=== PATIENT | male | born 1995 | race Caucasian/White ===

== ENCOUNTER 2019-02-04 00:08 | Emergency (ER) | payer MEDICAID, OTHER ==
[~2019-02-04] VITALS: Ht 160 cm; Wt 66.9 kg
[~2019-02-04 00:08] MED LIST: LORA1TAB PO
[2019-02-04 00:10] VITALS: Ht 160 cm; Wt 66.9 kg
[2019-02-04] MEDS ORDERED: LORAZEPAM 1 MG TAB PO ONE (01:00)
[2019-02-04 01:02] VITALS: BP 128/85; PULSE 94; RESP 18
--- NOTE | 2019-02-04 01:27 | ERD ---
ER Documentation Chief Complaint Chief Complaint PT BIB FAMILY W/ C/O FEELING ANXIOUS TODAY HPI 23-year-old male with history of bipolar disorder presents to the emergency department, brought in by his girlfriend with concerns for anxiety reaction. He states just prior to arrival he was in the shower when he began to feel very anxious. He does report significant stress in his life currently. He is not taking medication for his symptoms at this time. He adamantly denies any homicidal or suicidal ideation. He denies previous suicidal attempts. He denies any auditory hallucinations or visual hallucinations. He states he has a scheduled follow-up with his psychiatrist within the next 1 to 2 days. No other symptoms reported at this time. ROS All systems reviewed and are negative except as per history of present illness. Medications Home Meds Active Scripts Lorazepam* (Lorazepam*) 1 Mg Tablet, 1 MG PO Q8H PRN for ANXIETY, #10 TAB Prov:HEMANT HUYNH PA-C 02/04/19 Allergies Allergies: Coded Allergies: No Known Drug Allergies (Unverified Allergy, Unknown, 03/09/15) PMhx/Soc History of Surgery: Yes (HERNIA REPAIR AT 1Y 6M) Anesthesia Reaction: No Hx Neurological Disorder: No Hx Respiratory Disorders: No Hx Cardiac Disorders: No Hx Psychiatric Problems: No Hx Miscellaneous Medical Probl: No Hx Alcohol Use: No Hx Substance Use: No Hx Tobacco Use: Yes Smoking Status: Current every day smoker FmHx Family History: No diabetes Physical Exam Vitals Vital Signs Date Temp Pulse Resp B/P (MAP) Pulse Ox O2 O2 Flow FiO2 Time Delivery Rate 02/04/19 97.8 94 18 128/85 96 01:02 (99) 02/04/19 98.1 103 22 156/101 99 00:10 (119) Physical Exam Const: No acute distress Head: Atraumatic Eyes: Normal Conjunctiva ENT: Normal External Ears, Nose and Mouth. Neck: Full range of motion. No meningismus. Resp: No respiratory distress. Skin: No petechiae or rashes Back: No midline or flank tenderness Ext: No cyanosis, or edema Neur: Awake and alert Psych: Anxious. Denies homicidal or suicidal ideations. Results 24 hrs Current Medications Medications Dose Sig/Amalia Start Time Status Last (Trade) Ordered Route PRN Stop Time Admin Dose Reason Admin Lorazepam 1 mg ONCE ONCE 02/04/19 DC 02/04/19 (Ativan) PO 01:00 00:45 02/04/19 01:01 Procedures/MDM 23-year-old male presenting to the emergency department complaining of anxiety reaction. Patient denied any homicidal or suicidal ideation. Patient was significantly improved in the department after administration of Ativan. No evidence of emergent process. Patient is stable and appropriate for discharge a nd further outpatient management and follow-up with psychiatrist. Patient advised to return here immediately for any new or concerning symptoms. I shared my medical decision making with the patient and he understands and agrees with the plan. Patient's blood pressure was elevated (>120/80) but appears stable without evidence of hypertension emergency or urgency. The patient is to follow-up and pursue outpatient monitoring and therapy with their primary care physician within 1 week and return immediately if they have any new, worsening, or concerning symptoms. Departure Diagnosis: Primary Impression: Anxiety reaction Condition: Fair Patient Instructions: Your Body's Response to Anxiety, Anxiety Reaction Additional Instructions: Call your primary care doctor TOMORROW for an appointment during the next 1-2 days.See the doctor sooner or return here if your condition worsens before your appointment time. HEMANT HUYNH PA-C Feb 04, 2019 01:27
== END 2019-02-04 01:19 | disposition home or self-care (01) ==
LOC: FTE 00:08
DX: F41.1 Generalized anxiety disorder (principal)
CPT/HCPCS: 99283